=== PATIENT | male | born 1940 | race Caucasian/White ===

== ENCOUNTER 2018-12-20 18:26 | Inpatient (IN) | payer MEDICAID ==
[2018-12-20 19:18] LABS: ADD MAN DIFF? NO
[2018-12-20 19:21] LABS: BASOPHIL # 0.1 10^3/ul (0.0-0.1); BASOPHILS % 0.9 % (0.0-2.0); EOSINOPHILS # 0.3 10^3/ul (0.0-0.5); EOSINOPHILS % 4.4 % (0.0-7.0); HEMATOCRIT 32.1 % (42.0-52.0); HEMOGLOBIN 10.9 g/dl (14.0-18.0); LYMPHOCYTES # 1.6 10^3/ul (0.8-2.9); LYMPHOCYTES % 24.8 % (15.0-51.0); MEAN CORPUSCULAR HEMOGLOBIN 29.7 pg (29.0-33.0); MEAN CORPUSCULAR VOLUME 87.5 fl (82.0-101.0); MEAN PLATELET VOLUME 11.3 fl (7.4-10.4); MONOCYTE # 0.5 10^3/ul (0.3-0.9); MONOCYTES % 7.3 % (0.0-11.0); NEUTROPHIL # 4.1 10^3/ul (1.6-7.5); NEUTROPHILS % 62.3 % (39.0-77.0); PLATELET COUNT 185 10^3/UL (140-415); RED BLOOD COUNT 3.67 10^6/ul (4.70-6.10); RED CELL DISTRIBUTION WIDTH 12.7 % (11.5-14.5)
[2018-12-20 19:21] LABS: WHITE BLOOD COUNT 6.6 10^3/ul (4.8-10.8)
[2018-12-20] MEDS: morphine 4 MG/ML VIAL IV (19:29)
[2018-12-20] MEDS: ONDANSETRON 4 MG INJ IV (19:29)
[2018-12-20] MEDS: SOD CHLORIDE 0.9% 1,000 ML IV ×2 (19:29→21:04)
[2018-12-20 19:42] LABS: ALANINE AMINOTRANSFERASE 24 IU/L (13-69); ALBUMIN 3.8 g/dl (3.3-4.9); ALBUMIN/GLOBULIN RATIO 1.22; ALKALINE PHOSPHATASE 70 IU/L (42-121); ANION GAP 10 (5-13); ASPARTATE AMINO TRANSFERASE 24 IU/L (15-46); BILIRUBIN,INDIRECT 0.2 mg/dl (0-1.1); BILIRUBIN,TOTAL 0.2 mg/dl (0.2-1.3); BLOOD UREA NITROGEN 32 mg/dl (7-20); CARBON DIOXIDE 24 mmol/L (21-31); CHLORIDE 99 mmol/L (97-110); CREATININE 2.27 mg/dl (0.61-1.24); LIPASE 279 U/L (23-300); POTASSIUM 4.9 mmol/L (3.5-5.1); SODIUM 133 mmol/L (135-144); TOTAL PROTEIN 6.9 g/dl (6.1-8.1)
[2018-12-20 19:58] LABS: GLUCOSE 660 mg/dl (70-220)
[2018-12-20] MEDS: INSULIN LISPRO 100 UNIT/ML VIAL SC (20:06)
[2018-12-20] MEDS: ACCU-CHEK XX (20:08)
[2018-12-20 20:27] LABS: ADD UMIC NO; UR ASCORBIC ACID NEGATIVE (NEGATIVE); UR BILIRUBIN (Dip) NEGATIVE (NEGATIVE); UR BLOOD (Dip) NEGATIVE (NEGATIVE); UR CLARITY CLEAR (CLEAR); UR COLOR STRAW (YELLOW); UR GLUCOSE (Dip) 3+ mg/dL (NEGATIVE); UR KETONES (Dip) NEGATIVE (NEGATIVE); UR LEUKOCYTE ESTERASE (Dip) NEGATIVE Leu/ul (NEGATIVE); UR NITRITE (Dip) NEGATIVE (NEGATIVE); UR SPECIFIC GRAVITY (Dip) 1.014 (1.003-1.030); UR TOTAL PROTEIN (Dip) NEGATIVE (NEGATIVE); UR UROBILINOGEN (Dip) NEGATIVE (NEGATIVE)
[2018-12-20] MEDS ORDERED: GLUCOSE GEL 15 GRAM TUBE BUCCAL (20:30)
[2018-12-20] MEDS ORDERED: DEXTROSE 50% 50 ML SYRINGE IV ×2 (20:30)
[2018-12-20] MEDS ORDERED: BISACODYL (EC) 5 MG TAB PO (20:30)
[2018-12-20] MEDS ORDERED: GLUCAGON 1 MG INJ IM (20:30)
[2018-12-20] MEDS ORDERED: DOCUSATE SODIUM 100 MG CAP PO (20:30)
[2018-12-20] MEDS ORDERED: GLUCOSE GEL 15 GRAM TUBE PO ×2 (20:30)
[2018-12-20] MEDS ORDERED: NACL 0.9% 3 ML SYG IV (20:30)
[2018-12-20] MEDS: INSULIN ASPART [NOVOLOG] 3 ML PEN SC (21:00)
[2018-12-21] MEDS: INSULIN ASPART [NOVOLOG] 3 ML PEN SC ×8 (00:27→20:04)
[2018-12-21] MEDS: SOD CHLORIDE 0.9% 1,000 ML IV ×4 (00:28→21:21)
[2018-12-21] MEDS: INSULIN GLARGINE [LANTus] (100 UNITS/ML) SYG SC ×2 (00:35→13:00)
[2018-12-21] MEDS: ACCU-CHEK XX (02:00)
[2018-12-21 06:34] LABS: ADD MAN DIFF? NO
[2018-12-21 06:43] LABS: BASOPHILS % 0.5 % (0.0-2.0); EOSINOPHILS # 0.3 10^3/ul (0.0-0.5); EOSINOPHILS % 3.2 % (0.0-7.0); HEMATOCRIT 31.3 % (42.0-52.0); HEMOGLOBIN 10.6 g/dl (14.0-18.0); LYMPHOCYTES # 1.8 10^3/ul (0.8-2.9); LYMPHOCYTES % 20.5 % (15.0-51.0); MEAN CORPUSCULAR HEMOGLOBIN 29.3 pg (29.0-33.0); MEAN CORPUSCULAR HGB CONC 33.9 g/dl (32.0-37.0); MEAN CORPUSCULAR VOLUME 86.5 fl (82.0-101.0); MEAN PLATELET VOLUME 11.2 fl (7.4-10.4); MONOCYTE # 0.6 10^3/ul (0.3-0.9); MONOCYTES % 6.6 % (0.0-11.0); NEUTROPHIL # 5.9 10^3/ul (1.6-7.5); NEUTROPHILS % 68.7 % (39.0-77.0); PLATELET COUNT 176 10^3/UL (140-415); RED BLOOD COUNT 3.62 10^6/ul (4.70-6.10); RED CELL DISTRIBUTION WIDTH 12.6 % (11.5-14.5)
[2018-12-21 06:43] LABS: WHITE BLOOD COUNT 8.6 10^3/ul (4.8-10.8)
[2018-12-21 07:18] LABS: HEMOGLOBIN A1C 12.9 % (0-5.9)
[2018-12-21 07:21] LABS: ALANINE AMINOTRANSFERASE 24 IU/L (13-69); ALBUMIN 3.3 g/dl (3.3-4.9); ALBUMIN/GLOBULIN RATIO 1.13; ALKALINE PHOSPHATASE 48 IU/L (42-121); ANION GAP 7 (5-13); ASPARTATE AMINO TRANSFERASE 23 IU/L (15-46); BILIRUBIN,INDIRECT 0.2 mg/dl (0-1.1); BILIRUBIN,TOTAL 0.2 mg/dl (0.2-1.3); BLOOD UREA NITROGEN 26 mg/dl (7-20); CALCIUM 8.6 mg/dl (8.4-10.2); CARBON DIOXIDE 26 mmol/L (21-31); CHLORIDE 109 mmol/L (97-110); CHOL/HDL RATIO 6.7 RATIO; CHOLESTEROL 188 mg/dl (100-200); GLUCOSE 202 mg/dl (70-220); HDL CHOLESTEROL 28 mg/dl (31-75); LDL CHOLESTEROL,CALCULATED 110 mg/dl; MAGNESIUM 1.6 mg/dl (1.7-2.5); POTASSIUM 4.1 mmol/L (3.5-5.1); SODIUM 142 mmol/L (135-144); TOTAL PROTEIN 6.2 g/dl (6.1-8.1); TRIGLYCERIDES 251 mg/dl (0-149)
[2018-12-21] MEDS: DUTASTERIDE 0.5 MG CAP PO (08:28)
[2018-12-21 09:08] LABS: IRON 45 ug/dl (35-150)
[2018-12-21 09:18] LABS: % IRON SATURATION 19 % SAT (22-52); TOTAL IRON BINDING CAPACITY 242 ug/dl (241-421)
[2018-12-21 12:19] LABS: FREE T4 (FREE THYROXINE) 0.89 ng/dl (0.78-2.44)
[2018-12-21] MEDS: FISH OIL 1,000 MG CAP PO ×2 (12:55→20:02)
[2018-12-21] MEDS: FERROUS SULFATE (EC) 325 MG TAB PO (12:56)
[2018-12-21] MEDS: TAMSULOSIN (SR) 0.4 MG CAP PO (20:07)
[2018-12-22] MEDS: ACCU-CHEK XX (01:05)
[2018-12-22] MEDS: SOD CHLORIDE 0.9% 1,000 ML IV ×2 (04:22→20:44)
[2018-12-22 07:02] LABS: ADD MAN DIFF? NO
[2018-12-22 07:05] LABS: WHITE BLOOD COUNT 9.8 10^3/ul (4.8-10.8)
[2018-12-22 07:05] LABS: BASOPHIL # 0.1 10^3/ul (0.0-0.1); BASOPHILS % 0.6 % (0.0-2.0); EOSINOPHILS # 0.3 10^3/ul (0.0-0.5); EOSINOPHILS % 3.1 % (0.0-7.0); HEMATOCRIT 32.1 % (42.0-52.0); LYMPHOCYTES # 2.7 10^3/ul (0.8-2.9); LYMPHOCYTES % 27.9 % (15.0-51.0); MEAN CORPUSCULAR HEMOGLOBIN 29.8 pg (29.0-33.0); MEAN CORPUSCULAR HGB CONC 34.3 g/dl (32.0-37.0); MEAN PLATELET VOLUME 10.7 fl (7.4-10.4); MONOCYTE # 0.7 10^3/ul (0.3-0.9); MONOCYTES % 6.8 % (0.0-11.0); NEUTROPHILS % 61.3 % (39.0-77.0); PLATELET COUNT 177 10^3/UL (140-415); RED BLOOD COUNT 3.69 10^6/ul (4.70-6.10); RED CELL DISTRIBUTION WIDTH 12.5 % (11.5-14.5)
[2018-12-22 07:31] LABS: ANION GAP 8 (5-13); BLOOD UREA NITROGEN 22 mg/dl (7-20); CALCIUM 9.3 mg/dl (8.4-10.2); CARBON DIOXIDE 26 mmol/L (21-31); CHLORIDE 106 mmol/L (97-110); CREATININE 1.73 mg/dl (0.61-1.24); GLUCOSE 159 mg/dl (70-220); POTASSIUM 4.1 mmol/L (3.5-5.1); SODIUM 140 mmol/L (135-144)
[2018-12-22] MEDS ORDERED: INSULIN GLARGINE [LANTus] (100 UNITS/ML) SYG SC (08:00)
[2018-12-22] MEDS: INSULIN GLARGINE [LANTus] (100 UNITS/ML) SYG SC (08:12)
[2018-12-22] MEDS: INSULIN ASPART [NOVOLOG] 3 ML PEN SC ×7 (08:12→19:58)
[2018-12-22] MEDS: FISH OIL 1,000 MG CAP PO ×2 (08:18→19:57)
[2018-12-22] MEDS: FERROUS SULFATE (EC) 325 MG TAB PO (08:18)
[2018-12-22] MEDS: TAMSULOSIN (SR) 0.4 MG CAP PO ×2 (08:18→19:57)
[2018-12-22] MEDS: DUTASTERIDE 0.5 MG CAP PO (08:18)
[2018-12-22 15:17] LABS: CREATININE, RANDOM URINE 31 mg/dL (20-320); MICROALBUMIN 2.5 mg/dL; MICROALBUMIN/CREATININE RATIO 81 (<30)
[2018-12-23] MEDS: ACCU-CHEK XX (01:25)
[2018-12-23] MEDS: ACETAMINOPHEN 325 MG TAB PO ×2 (06:15→23:34)
[2018-12-23 08:18] LABS: PROSTATE SPECIFIC ANTIGEN 4.3 ng/ml (0.0-4.0)
[2018-12-23] MEDS: TAMSULOSIN (SR) 0.4 MG CAP PO ×2 (08:18→20:10)
[2018-12-23] MEDS: SOD CHLORIDE 0.9% 1,000 ML IV ×2 (08:18→16:37)
[2018-12-23] MEDS: DUTASTERIDE 0.5 MG CAP PO (08:18)
[2018-12-23] MEDS: FERROUS SULFATE (EC) 325 MG TAB PO (08:19)
[2018-12-23] MEDS: FISH OIL 1,000 MG CAP PO ×2 (08:19→20:10)
[2018-12-23] MEDS: INSULIN GLARGINE [LANTus] (100 UNITS/ML) SYG SC (08:30)
[2018-12-23] MEDS: INSULIN ASPART [NOVOLOG] 3 ML PEN SC ×7 (08:30→20:13)
[2018-12-23] MEDS: SOD CHLORIDE 0.9% 500 ML IV (11:55)
[2018-12-23 19:02] LABS: PSA, FREE 1.9 ng/mL
[2018-12-24] MEDS: ACCU-CHEK XX (02:00)
[2018-12-24] MEDS: SOD CHLORIDE 0.9% 1,000 ML IV (04:04)
[2018-12-24 07:07] LABS: ANION GAP 8 (5-13); BLOOD UREA NITROGEN 27 mg/dl (7-20); CALCIUM 9.1 mg/dl (8.4-10.2); CARBON DIOXIDE 26 mmol/L (21-31); CHLORIDE 107 mmol/L (97-110); CREATININE 1.51 mg/dl (0.61-1.24); GLUCOSE 195 mg/dl (70-220); SODIUM 141 mmol/L (135-144)
[2018-12-24] MEDS: DUTASTERIDE 0.5 MG CAP PO (08:21)
[2018-12-24] MEDS: TAMSULOSIN (SR) 0.4 MG CAP PO ×2 (08:21→20:19)
[2018-12-24] MEDS: FERROUS SULFATE (EC) 325 MG TAB PO (08:21)
[2018-12-24] MEDS: FISH OIL 1,000 MG CAP PO ×2 (08:21→20:19)
[2018-12-24] MEDS: INSULIN ASPART [NOVOLOG] 3 ML PEN SC ×7 (08:40→20:19)
[2018-12-24] MEDS: INSULIN GLARGINE [LANTus] (100 UNITS/ML) SYG SC (08:41)
[2018-12-24] MEDS: ACETAMINOPHEN 325 MG TAB PO (17:10)
[2018-12-24] MEDS: GABAPENTIN 100 MG CAP PO (20:19)
[2018-12-25] MEDS: ACCU-CHEK XX (02:00)
[2018-12-25] MEDS: ACETAMINOPHEN 325 MG TAB PO (08:02)
[2018-12-25] MEDS: DUTASTERIDE 0.5 MG CAP PO (08:38)
[2018-12-25] MEDS: TAMSULOSIN (SR) 0.4 MG CAP PO (08:38)
[2018-12-25] MEDS: FISH OIL 1,000 MG CAP PO (08:38)
[2018-12-25] MEDS: GABAPENTIN 100 MG CAP PO ×2 (08:38→12:45)
[2018-12-25] MEDS: FERROUS SULFATE (EC) 325 MG TAB PO (08:38)
[2018-12-25] MEDS: INSULIN ASPART [NOVOLOG] 3 ML PEN SC ×6 (08:41→17:14)
[2018-12-25] MEDS: INSULIN GLARGINE [LANTus] (100 UNITS/ML) SYG SC (09:30)
== END 2018-12-25 18:18 | disposition home or self-care (01) | DRG 683 ==
LOC: 5EC 12-24 16:06 → E/R 18:26 → TEL 20:23
DX: N17.9 Acute kidney failure, unspecified (principal); N13.8 Other obstructive and reflux uropathy; E11.65 Type 2 diabetes mellitus with hyperglycemia; N13.30 Unspecified hydronephrosis; N40.1 Benign prostatic hyperplasia with lower urinary tract symptoms; R33.8 Other retention of urine; E11.22 Type 2 diabetes mellitus with diabetic chronic kidney disease; N18.9 Chronic kidney disease, unspecified; E03.9 Hypothyroidism, unspecified; D64.9 Anemia, unspecified; E11.40 Type 2 diabetes mellitus with diabetic neuropathy, unspecified; E78.1 Pure hyperglyceridemia
CPT/HCPCS: 36415; 74176; 76775; 80048; 80053; 80061; 81003; 82043; 82728; 82962; 83036; 83540; 83690; 83735; 84153; 84154; 84439; 84443; 85025; 86850; 86900; 86901; 93005; 96372; 96374; 96375; 99285-25